=== PATIENT | female | born 1985 | race Two or more races ===

== ENCOUNTER 2018-11-23 21:48 | Emergency (ER) | payer MEDICAID, OTHER ==
[~2018-11-23] VITALS: Ht 167.6 cm; Wt 105.2 kg
[~2018-11-23 21:48] MED LIST: IBUPROFEN600 MG ORAL
[2018-11-23] MEDS ORDERED: NKM (22:04)
[2018-11-23 22:06] VITALS: BP 158/91
--- NOTE | 2018-11-23 22:06 | NUR ---
ED Nurse Note: Pt arrived ED from home, c/o lower back pain 01/03 today. pt is A/O X4. Vital signs stable at this time, waiting for orders.
--- NOTE | 2018-11-23 22:29 | Emergency Room Report ---
History of Present Illness General Chief Complaint: Back Pain-No Injury Source: Patient Present Illness HPI This is a 33-year-old female with a history of kidney stones. She presents with chewing her right flank pain. Onset for last couple days. No radiation. Pain is 7 out of 10. She felt like this with her previous kidney stone. No nausea no vomiting. No dysuria frequency. No hematuria. [id number] medicine not helping. Allergies: Coded Allergies: No Known Allergies (Unverified , 05/11/15) Patient History Past Medical History: see triage record, old chart reviewed Past Surgical History: other Pertinent Family History: none Social History: Denies: smoking Last Menstrual Period: 10/04/18 Now: No Immunizations: other Reviewed Nursing Documentation: PMH: Agreed; PSxH: Agreed Nursing Documentation-PMH Past Medical History: No History, Except For Review of Systems Eye: Denies: eye pain, blurred vision ENT: Denies: ear pain, nose congestion, throat swelling Respiratory: Denies: cough, shortness of breath Cardiovascular: Denies: chest pain, palpitations Gastrointestinal: Denies: abdominal pain, diarrhea, nausea, vomiting Musculoskeletal: Reports: back pain; Denies: joint pain Skin: Denies: rash Neurological: Denies: headache, numbness Endocrine: Denies: increased thirst, increased urine Hematologic/Lymphatic: Denies: easy bruising All Other Systems: negative except mentioned in HPI Physical Exam Vital Signs Date Time Temp Pulse Resp B/P (MAP) Pulse Ox O2 Delivery O2 Flow Rate FiO2 11/23/18 22:00 98.2 69 12 161/99 99 Room Air vitals with high blood pressure Sp02 EP Interpretation: reviewed, normal General Appearance: well appearing, no apparent distress, alert, obese Head: normocephalic, atraumatic Eyes: bilateral eye PERRL, bilateral eye EOMI ENT: hearing grossly normal, normal pharynx Neck: full range of motion, supple, no meningismus Respiratory: chest non-tender, lungs clear, normal breath sounds Cardiovascular #1: regular rate, rhythm, no murmur Gastrointestinal: normal bowel sounds, non tender, no mass, no organomegaly, no bruit, non-distended Musculoskeletal: back normal, gait/station normal, normal range of motion Psychiatric: mood/affect normal Skin: warm/dry Medical Decision Making Diagnostic Impression: Primary Impression: Back pain Qualified Codes: M54.5 - Low back pain ER Course She presents with back pain. This is most likely muscle skeletal in nature. No evidence of any pyelonephritis or infection. No evidence of kidney stone pain. We'll discharge home. CT/MRI/US Diagnostic Results CT/MRI/US Diagnostic Results : Imaging Test Ordered: CT abdomen and pelvis Impression negative per radiologist Last Vital Signs Date Time Temp Pulse Resp B/P (MAP) Pulse Ox O2 Delivery O2 Flow Rate FiO2 11/23/18 22:00 98.2 69 12 161/99 99 Room Air Status: improved Disposition: HOME, SELF-CARE Condition: Stable Scripts Ibuprofen* (MOTRIN*) 600 Mg Tablet 600 MG ORAL THREE TIMES A DAY, #30 TAB 0 Refills Prov: Josemanuel Hanna MD 11/24/18 Patient Instructions: Back Pain, Adult Additional Instructions: Follow-up with your doctor in 7 days. Return if symptom worsen. Josemanuel Hanna MD Nov 23, 2018 22:29
[2018-11-23] MEDS ORDERED: HYDROcodone/Acetamin 5/325 tab ORAL ONE (22:30)
[2018-11-23 23:20] LABS: APPEARANCE,URINE CLEAR; BILIRUBIN, URINE NEGATIVE (NEGATIVE); COLOR,URINE PALE YELLOW; GLUCOSE, URINE (UA) NEGATIVE (NEGATIVE); KETONES,URINE NEGATIVE (NEGATIVE); LEUKOCYTE ESTERASE ,URINE NEGATIVE (NEGATIVE); NITRITE,URINE NEGATIVE (NEGATIVE); PH,URINE 6.5 (4.5-8.0); PROTEIN,URINE NEGATIVE (NEGATIVE); UROBILINOGEN,URINE NORMAL MG/DL (0.0-1.0)
[2018-11-23 23:55] VITALS: BP 135/79
--- NOTE | 2018-11-23 23:55 | NUR ---
ER DISCHARGE NOTE: Patient is cleared to be discharged per ERMD, pt is aox4, on room air, with stable vital signs. ACCOMPANIED BY [facility] [employer]. pt was given dc and prescription instructions, pt was able to verbalize understanding, pt id band REMOVED. pt is able to ambulate with steady gait. pt took all belongings.
[2018-11-24] MEDS ORDERED: IBUPROFEN600 MG ORAL (00:21)
--- NOTE | 2018-11-24 09:13 | Diagnostic Imaging Report ---
Indication: Abdominal and flank pain for 3 days Technique: Spiral acquisitions obtained through the abdomen and pelvis. No oral contrast utilized, per emergency room physician request No IV contrast utilized, per referring physician request.. Multiplanar reconstructions were generated. Total dose length product 1120.65 mGycm. CTDIvol(s) 19.51 mGy. Dose reduction achieved using automated exposure control Comparison: None Findings: No renal or ureteral calculi, hydronephrosis, or hydroureter demonstrated. Lack of IV contrast limits assessment of the renal parenchyma. No gross renal parenchymal mass or cyst demonstrated. Lack of IV contrast limits assessment of the other solid organs. The liver, gallbladder, bile ducts, pancreas, spleen, adrenals are unremarkable. No retroperitoneal or mesenteric mass or adenopathy. No pelvic mass or adenopathy. Uterus and ovaries are unremarkable except for a small left ovarian cyst. There is a small amount of free fluid located posterior to the cervix. No evidence of diverticulosis or diverticulitis. The appendix is normal. No small bowel distention. There is a small fat-containing umbilical hernia. No free intraperitoneal gas demonstrated. The included lung bases are clear. The bones are unremarkable Impression: No acute or significant abnormality Small amount of free pelvic fluid Small fat-containing umbilical hernia incidentally noted This agrees with the preliminary interpretation provided overnight by [facility] service. The CT scanner at [facility] is accredited by the [employer] and the scans are performed using protocols designed to limit radiation exposure to as low as reasonably achievable to attain images of sufficient resolution adequate for diagnostic evaluation.
== END 2018-11-24 00:24 | disposition home or self-care (01) ==
LOC: EMR 22:13
DX: M54.9 Dorsalgia, unspecified (principal)
CPT/HCPCS: 74176; 81003; 81025; 99284